=== PATIENT | female | born 1990 | race Caucasian/White ===

== ENCOUNTER 2017-05-18 07:00 | Emergency (ER) | payer OTHER | END 2017-05-18 08:05 | disposition home or self-care (01) | LOC: ER1 07:00 | DX: S05.01XA Injury of conjunctiva and corneal abrasion without foreign body, right eye, initial encounter (principal); F17.200 Nicotine dependence, unspecified, uncomplicated; Z88.0 Allergy status to penicillin; W50.0XXA Accidental hit or strike by another person, initial encounter | CPT/HCPCS: 99282 ==

== ENCOUNTER 2021-01-20 16:29 | Emergency (ER) | payer OTHER ==
[~2021-01-20 16:29] MED LIST: CELEBREX200 MG PO; CYCLOBENZAPRINE5 MG PO; NAPROSYN EC 50500 MG GT; NORCO 5-325 TA1 EACH PO; PERCOCET 5/325 T1 EA PO
[2021-01-20] MEDS ORDERED: NAPROSYN500 MG PO (17:44)
[2021-01-20] MEDS ORDERED: CYCLOBENZAPRINE10 MG PO (17:44)
== END 2021-01-20 17:50 | disposition home or self-care (01) ==
LOC: ER1 16:29
DX: S39.012A Strain of muscle, fascia and tendon of lower back, initial encounter (principal); F17.290 Nicotine dependence, other tobacco product, uncomplicated; Z88.0 Allergy status to penicillin; Z88.5 Allergy status to narcotic agent; X50.0XXA Overexertion from strenuous movement or load, initial encounter; Y92.009 Unspecified place in unspecified non-institutional (private) residence as the place of occurrence of the external cause
CPT/HCPCS: 96372; 99283; J1885

== ENCOUNTER 2021-03-05 21:09 | Emergency (ER) | payer OTHER ==
[~2021-03-05 21:09] MED LIST changes: +CYCLOBENZAPRINE10 MG PO; +NAPROSYN500 MG PO
[2021-03-05] MEDS ORDERED: LODINE CAP 300300 MG PO (21:53)
[2021-03-05] MEDS ORDERED: DOXYCYCLINE MO100 MG PO (21:53)
== END 2021-03-05 22:37 | disposition home or self-care (01) ==
LOC: ER1 21:09
DX: S30.861A Insect bite (nonvenomous) of abdominal wall, initial encounter (principal); L03.311 Cellulitis of abdominal wall; R59.0 Localized enlarged lymph nodes; J45.909 Unspecified asthma, uncomplicated; Z88.0 Allergy status to penicillin; F17.290 Nicotine dependence, other tobacco product, uncomplicated
CPT/HCPCS: 99281

== ENCOUNTER 2021-03-12 22:50 | Emergency (ER) | payer OTHER ==
[~2021-03-12 22:50] MED LIST changes: +DOXYCYCLINE MO100 MG PO; +LODINE CAP 300300 MG PO
[2021-03-13 01:06] LABS: HEMOGLOBIN 14.6 gm/dl (12.3-15.3); RED BLOOD COUNT 4.56 M/UL (4.00-5.10); WHITE BLOOD COUNT 11.3 K/UL (4.5-11.0)
[2021-03-13 02:00] LABS: BUN/CREATININE RATIO 11 (0-10)
[2021-03-13] MEDS ORDERED: BUTALB-ACETAMI1 EAC1 PO (02:25)
== END 2021-03-13 02:55 | disposition home or self-care (01) ==
LOC: ER1 22:50
PROVIDERS: Emergency Medicine
DX: R51.9 Headache, unspecified (principal); R20.2 Paresthesia of skin; F17.290 Nicotine dependence, other tobacco product, uncomplicated; Z88.0 Allergy status to penicillin
CPT/HCPCS: 70450; 71045; 80053; 82550; 82553; 83874; 83880; 84484; 84703; 85025; 93005; 99284

== ENCOUNTER 2021-03-30 00:41 | Emergency (ER) | payer OTHER ==
[~2021-03-30 00:41] MED LIST changes: +BUTALB-ACETAMI1 EAC1 PO
[2021-03-30] MEDS ORDERED: NAPROXEN500 MG PO (01:44)
== END 2021-03-30 02:00 | disposition home or self-care (01) ==
LOC: ER1 00:41
DX: S83.91XA Sprain of unspecified site of right knee, initial encounter (principal); Z88.5 Allergy status to narcotic agent; F17.290 Nicotine dependence, other tobacco product, uncomplicated; X50.0XXA Overexertion from strenuous movement or load, initial encounter; Y92.049 Unspecified place in boarding-house as the place of occurrence of the external cause
CPT/HCPCS: 73564; 73590; 99283

== ENCOUNTER → 2021-04-17 | Outpatient (CLI) | payer OTHER ==
[~2021-04-17] MED LIST changes: +BACLOFEN10 MG PO; +DECADRON4 MG PO; +DOXYCYCLINE HY100 M2 PO; +NAPROXEN500 MG PO; +OMNICEF 300 MG300 MG PO; +ROBAXIN 750 MG750 MG GT; +TORADOL 10 MG T10 MG PO; +ZOFRAN4 MG PO
== END ==
LOC: EMI 09:00
DX: R94.02 Abnormal brain scan (principal); R51.9 Headache, unspecified; A69.20 Lyme disease, unspecified; R20.2 Paresthesia of skin; R90.82 White matter disease, unspecified
CPT/HCPCS: 70553; A9577

== ENCOUNTER 2021-04-25 12:10 | Emergency (ER) | payer OTHER ==
[~2021-04-25 12:10] MED LIST changes: -BACLOFEN10 MG PO; -DECADRON4 MG PO; -DOXYCYCLINE HY100 M2 PO; -OMNICEF 300 MG300 MG PO; -ROBAXIN 750 MG750 MG GT; -TORADOL 10 MG T10 MG PO; -ZOFRAN4 MG PO
[2021-04-25] MEDS ORDERED: BACLOFEN10 MG PO (16:27)
== END 2021-04-25 17:17 | disposition home or self-care (01) ==
LOC: ER1 12:10
DX: M54.5 Low back pain (principal); F17.290 Nicotine dependence, other tobacco product, uncomplicated; Z90.89 Acquired absence of other organs; Z88.0 Allergy status to penicillin; Z88.5 Allergy status to narcotic agent
CPT/HCPCS: 72131; 84703; 96372; 99284; J1170

== ENCOUNTER 2021-05-27 18:32 | Emergency (ER) | payer OTHER ==
[~2021-05-27 18:32] MED LIST changes: +BACLOFEN10 MG PO
[2021-05-27 20:28] LABS: HEMOGLOBIN 13.4 gm/dl (12.3-15.3); RED BLOOD COUNT 4.07 M/UL (4.00-5.10); WHITE BLOOD COUNT 8.8 K/UL (4.5-11.0)
[2021-05-27 20:48] LABS: BUN/CREATININE RATIO 10 (0-10)
[2021-05-27] MEDS ORDERED: DOXYCYCLINE HY100 M2 PO (23:24)
[2021-05-27] MEDS ORDERED: TORADOL 10 MG T10 MG PO (23:24)
[2021-05-27] MEDS ORDERED: OMNICEF 300 MG300 MG PO (23:24)
[2021-05-27] MEDS ORDERED: ZOFRAN4 MG PO (23:24)
[2021-05-31 19:13] LABS: CHLAMYDIA TRACHOMATIS, NAA Positive (Negative); NEISSERIA GONORRHOEAE, NAA Negative (Negative)
== END 2021-05-27 23:58 | disposition home or self-care (01) ==
LOC: ER1 18:32
PROVIDERS: Emergency Medicine; Physician Assistant Medical
DX: N39.0 Urinary tract infection, site not specified (principal); F17.290 Nicotine dependence, other tobacco product, uncomplicated; Z88.5 Allergy status to narcotic agent; Z88.8 Allergy status to other drugs, medicaments and biological substances; Z90.89 Acquired absence of other organs
CPT/HCPCS: 80053; 81001; 84703; 85025; 96374; 96375; 99284; J0696; J1885; J2405; J7030; Q9967

== ENCOUNTER 2021-05-29 19:33 | Emergency (ER) | payer OTHER ==
[~2021-05-29 19:33] MED LIST changes: +DOXYCYCLINE HY100 M2 PO; +OMNICEF 300 MG300 MG PO; +TORADOL 10 MG T10 MG PO; +ZOFRAN4 MG PO
[2021-05-29 20:45] LABS: HEMOGLOBIN 14.8 gm/dl (12.3-15.3)
[2021-05-29 20:53] LABS: RED BLOOD COUNT 4.52 M/UL (4.00-5.10)
[2021-05-29 21:08] LABS: BUN/CREATININE RATIO 9 (0-10)
[2021-05-29] MEDS ORDERED: PERCOCET 5/325 T1 EA PO ×2 (21:50→21:58)
[2021-05-29] MEDS ORDERED: ROBAXIN 750 MG750 MG GT (21:50)
[2021-05-29] MEDS ORDERED: DECADRON4 MG PO (21:50)
== END 2021-05-29 22:08 | disposition home or self-care (01) ==
LOC: ER1 19:33
PROVIDERS: Family Medicine
DX: R10.31 Right lower quadrant pain (principal); R10.32 Left lower quadrant pain; F17.210 Nicotine dependence, cigarettes, uncomplicated; Z86.73 Personal history of transient ischemic attack (TIA), and cerebral infarction without residual deficits
CPT/HCPCS: 80053; 81001; 83605; 83690; 84703; 85025; 87040; 96374; 96375; 99284; J2550

== ENCOUNTER 2021-06-21 18:09 | Emergency (ER) | payer OTHER ==
[~2021-06-21 18:09] MED LIST changes: +DECADRON4 MG PO; +ROBAXIN 750 MG750 MG GT
[2021-06-21] MEDS ORDERED: NAPROSYN500 MG PO (19:51)
== END 2021-06-21 20:08 | disposition home or self-care (01) ==
LOC: ER1 18:09
DX: S50.02XA Contusion of left elbow, initial encounter (principal); F17.220 Nicotine dependence, chewing tobacco, uncomplicated; Z88.0 Allergy status to penicillin; Z88.5 Allergy status to narcotic agent; Z88.8 Allergy status to other drugs, medicaments and biological substances; W19.XXXA Unspecified fall, initial encounter
CPT/HCPCS: 73030; 73080; 73110; 99283

== ENCOUNTER 2021-07-07 23:33 | Emergency (ER) | payer OTHER ==
[2021-07-08] MEDS ORDERED: LODINE CAP 300300 MG PO (01:32)
[2021-07-08] MEDS ORDERED: NAPROXEN500 M1 PO (01:54)
== END 2021-07-08 02:00 | disposition home or self-care (01) ==
LOC: ER1 23:33
DX: S83.91XA Sprain of unspecified site of right knee, initial encounter (principal); Z90.49 Acquired absence of other specified parts of digestive tract; Z88.5 Allergy status to narcotic agent; Z88.0 Allergy status to penicillin; X50.9XXA Other and unspecified overexertion or strenuous movements or postures, initial encounter
CPT/HCPCS: 29530; 73564; 99283

== ENCOUNTER 2021-08-03 01:31 | Emergency (ER) | payer OTHER ==
[~2021-08-03 01:31] MED LIST changes: +NAPROXEN500 M1 PO
[2021-08-03 02:35] LABS: RED BLOOD COUNT 4.57 M/UL (4.00-5.10); WHITE BLOOD COUNT 11.3 K/UL (4.5-11.0)
[2021-08-03 02:53] LABS: BUN/CREATININE RATIO 6 (0-10)
[2021-08-03] MEDS ORDERED: LODINE CAP 300300 MG PO (04:57)
== END 2021-08-03 05:00 | disposition home or self-care (01) ==
LOC: ER1 01:31
PROVIDERS: Physician Assistant
DX: H92.02 Otalgia, left ear (principal); R51.9 Headache, unspecified; F17.210 Nicotine dependence, cigarettes, uncomplicated; Z88.0 Allergy status to penicillin; Z88.5 Allergy status to narcotic agent; Z90.89 Acquired absence of other organs
CPT/HCPCS: 70480; 80053; 85025; 99284